=== PATIENT | male | born 1995 ===

== ENCOUNTER 2017-01-07 17:45 | Emergency (ER) | payer SELFPAY ==
[2017-01-07 18:46] VITALS: BP 127/80
== END 2017-01-07 20:44 | disposition left against medical advice (07) ==
LOC: ED 17:45
DX: R07.9 Chest pain, unspecified (principal); Z53.21 Procedure and treatment not carried out due to patient leaving prior to being seen by health care provider
CPT/HCPCS: 93005; 93010